=== PATIENT | female | born 1940 | race Caucasian/White ===

== ENCOUNTER 2017-01-24 19:38 | Emergency (ER) | payer MEDICARE, OTHER ==
[2017-01-24] MEDS ORDERED: Sodium Chloride 0.9% 1,000 ML IV ONE (20:53)
[2017-01-24] MEDS ORDERED: methylPREDNISolone Sodium Succinate 125 MG/2 ML SDV IVPUSH ONE (20:53)
--- NOTE | 2017-01-24 21:00 | EDM.PDOC ---
ED HPI GENERAL MEDICAL PROBLEM - General Chief Complaint: Skin Complaint Stated Complaint: BAD RASH Time Seen by Provider: 01/24/17 19:57 Source of Information: Reports: Patient History Limitations: Reports: No Limitations - History of Present Illness INITIAL COMMENTS - FREE TEXT/NARRATIVE: History of present illness: [76-year-old female presenting with acute onset of 80 plicae rash across chest. Patient indicates that she travels extensively and stays in hotels which requires her to use different body washes. Patient indicates that she has had this rash before and that it is usually self-limiting but this time the rash seems worse than normal.] Review of systems: As per history of present illness and below otherwise all systems reviewed and negative. Past medical history: As per history of present illness and as reviewed below otherwise noncontributory. Surgical history: As per history of present illness and as reviewed below otherwise noncontributory. Social history: No reported history of drug or alcohol abuse. Family history: As per history of present illness and as reviewed below otherwise noncontributory. Physical exam: HEENT: Atraumatic, normocephalic, pupils reactive, negative for conjunctival pallor or scleral icterus, mucous membranes moist, throat clear, neck supple, nontender, trachea midline. Lungs: Clear to auscultation, breath sounds equal bilaterally, chest nontender. Heart: S1S2, regular, negative for clicks, rubs, or JVD. Abdomen: Soft, nondistended, nontender. Negative for masses or hepatosplenomegaly. Negative for costovertebral tenderness. Pelvis: Stable nontender. Genitourinary: Deferred. Rectal: Deferred. Extremities: Atraumatic, negative for cords or calf pain. Neurovascular unremarkable. Neuro: Awake, alert, oriented. Cranial nerves II through XII unremarkable. Cerebellum unremarkable. Motor and sensory unremarkable throughout. Exam nonfocal. Skin: Diffuse dramatic inflammation across chest and between breasts that have been somewhat yeast/fungal presentation. Diagnostics: [] Therapeutics: [IV fluid, Srinivas to] Impression: [Contact dermatitis] Plan: [Medrol Dosepak, and Lotrisone spray the patient has are ready obtained] Definitive disposition and diagnosis as appropriate pending reevaluation and review of above. - Related Data Allergies Allergy/AdvReac Type Severity Reaction Status Date / Time Sulfa (Sulfonamide AdvReac Jaundice Verified 01/24/17 20:20 Antibiotics) Home Meds: Home Meds . [No Known Home Meds] 01/24/17 [History] Past Medical History HEENT History: Reports: None Psychiatric History: Reports: None Oncologic (Cancer) History: Reports: Breast, Uterine, Other (See Below) Other Oncologic History: skin and oral - Infectious Disease History Infectious Disease History: Reports: None - Past Surgical History HEENT Surgical History: Reports: Oral Surgery Female Surgical History: Reports: Hysterectomy, Other (See Below) Other Female Surgeries/Procedures: left breast lumpectomy Social & Family History - Tobacco Use Smoking Status *Q: Never Smoker ED ROS GENERAL - Review of Systems Review Of Systems: See Below (History of present illness) ED EXAM, SKIN/RASH Exam: See Below (See history of present illness) Course - Vital Signs Last Recorded V/S: Last Vital Signs Temp 36.7 C 01/24/17 20:21 Pulse 75 01/24/17 20:21 Resp 16 01/24/17 20:21 BP 140/83 01/24/17 20:21 Pulse Ox 99 01/24/17 20:21 - Orders/Labs/Meds Orders: Active Orders 24 hr Category Date Time Status Sodium Chloride 0.9% [Normal Saline] 1,000 ml Med 01/24/17 20:53 Ordered IV STAT Medication Orders Sodium Chloride (Normal Saline) 1,000 mls @ 999 mls/hr IV STAT ONE Stop: 01/24/17 21:53 Meds: Medications Generic Name Dose Route Start Last Admin Trade Name Freq PRN Reason Stop Dose Admin Sodium Chloride 1,000 mls @ 999 mls/hr 01/24/17 20:53 Normal Saline IV 01/24/17 21:53 STAT ONE Discontinued Medications Generic Name Dose Route Start Last Admin Trade Name Freq PRN Reason Stop Dose Admin Methylprednisolone Sodium Succinate 125 mg 01/24/17 20:53 Solu-Medrol IVPUSH 01/24/17 20:54 ONETIME ONE Departure - Departure Time of Disposition: 20:59 Disposition: Home, Self-Care 01 Condition: good Clinical Impression: Contact dermatitis - Discharge Information Instructions: Contact Dermatitis, [id number] Forms: ED Department Discharge Additional Instructions: The following information is given to patients seen in the emergency department who are being discharged to home. This information is to outline your options for follow-up care. We provide all patients seen in our emergency department with a follow-up referral. The need for follow-up, as well as the timing and circumstances, are variable depending upon the specifics of your emergency department visit. If you don't have a primary care physician on staff, we will provide you with a referral. We always advise you to contact your personal physician following an emergency department visit to inform them of the circumstance of the visit and for follow-up with them and/or the need for any referrals to a consulting specialist. The emergency department will also refer you to a specialist when appropriate. This referral assures that you have the opportunity for follow-up care with a specialist. All of these measure are taken in an effort to provide you with optimal care, which includes your follow-up. Under all circumstances we always encourage you to contact your private physician who remains a resource for coordinating your care. When calling for follow-up care, please make the office aware that this follow-up is from your recent emergency room visit. If for any reason you are refused follow-up, please contact the [facility] Emergency Department at and asked to speak to the emergency department charge nurse. Take medication as directed Follow up with PCP in one to 2 days Return to ED as needed as discussed - My Orders Last 24 Hours: My Active Orders 01/24/17 20:53 Sodium Chloride 0.9% [Normal Saline] 1,000 ml IV STAT - Assessment/Plan Last 24 Hours: My Active Orders 01/24/17 20:53 Sodium Chloride 0.9% [Normal Saline] 1,000 ml IV STAT
[2017-01-25 01:46] VITALS: BP 144/84
== END 2017-01-24 22:38 | disposition home or self-care (01) ==
LOC: MW.ED 19:38
DX: L25.9 Unspecified contact dermatitis, unspecified cause (principal); Z90.710 Acquired absence of both cervix and uterus; Z98.890 Other specified postprocedural states; Z90.89 Acquired absence of other organs; Z88.2 Allergy status to sulfonamides
CPT/HCPCS: 96361; 96374; 99282; J2930; J7040; 99284